=== PATIENT | male | born 1965 | race Asian ===

== ENCOUNTER 2018-06-19 16:22 | Emergency (ER) | payer OTHER ==
[~2018-06-19] VITALS: Ht 182.9 cm; Wt 102.0 kg
--- NOTE | 2018-06-19 16:58 | RAD ---
EXAM: CHEST 1 VIEW History: Chest pain, lower extremity swelling. COMPARISON: None available. TECHNIQUE: Single portable radiograph of the chest FINDINGS: The cardiac silhouette is unremarkable. The lungs are clear bilaterally. The costophrenic sulci are clear and well demarcated. IMPRESSION: No radiographic evidence of an acute cardiopulmonary process. Electronically signed by: Leonides Barney MD (06/19/2018 4:55 PM) [id number]
--- NOTE | 2018-06-19 17:35 | RAD ---
Ultrasound venous Doppler INDICATION:RT LEG SWELLING TECHNIQUE: Grayscale, color Doppler and spectral waveform ultrasound images of the bilateral lower extremities deep veins obtained. COMPARISON: None FINDINGS: There is a hypoechoic filling defects seen in the right proximal, mid and distal SFV without internal blood flow. Rest of the interrogated deep veins are compressible and demonstrate evidence of blood flow with normal respiratory variation and response to augmentation. IMPRESSION: Findings of acute DVT in the right SFV. Critical findings were identified on 06/19/2018 5:24 PM, read back and verified with Dr. Peguero on 06/19/2018 5:[address] Phill Brown DO. Electronically signed by: Phill Brown DO (06/19/2018 5:32 PM) [facility]
--- NOTE | 2018-06-19 17:59 | PHYS DOC ---
Past History Past Medical History: Diabetes, Hypertension Past Surgical History: Tonsillectomy Alcohol Use: Occasionally Drug Use: None Adult General Chief Complaint Chief Complaint: LOWER EXTREMITY SWELLING HPI HPI This is a pleasant 53-year-old gentleman presenting to the emergency department today with unilateral leg swelling and pain. The pain in his leg is a throbbing sensation has been present for 1-2 days. Associated with swelling. He did recently have a long plane ride. He also has dyspnea on exertion without chest pain. He denies fevers or chills. Review of systems is negative for chest pain abdominal pain nausea vomiting fevers or chills. All other review of systems is negative unless otherwise noted in history of present illness. ED course: 53-year-old gentleman presenting to the emergency department today with unilateral leg swelling and dyspnea. Concern for possible DVT and pulmonary embolism. Ultrasound of the leg ordered along with blood work and angiogram of the chest. Ultrasound demonstrates DVT in the right leg. Chemistry still pending along with angiogram of the chest. Patient signed out at 6 PM with plans on anticoagulation and possible admission depending other studies. Patient was signed out to Dr. Spaulding. Review of Systems Review of Systems SEE ABOVE. Current Medications Current Medications Current Medications Medications (Trade) Dose Ordered Sig/Joanna Start Time Stop Time Status Last Admin Dose Admin Info (Do NOT chart on this entry -- for MONITORING) 1 each PRN DAILY PRN 06/19/18 18:00 06/21/18 17:59 Iohexol (Omnipaque 300 Mg/ml) 75 ml 1X ONCE 06/19/18 18:00 06/19/18 18:01 Allergies Allergies Allergies Coded Allergies Type Severity Reaction Last Updated Verified No Known Drug Allergies 06/19/18 No Physical Exam Physical Exam SEE ABOVE Constitutional: Well developed, well nourished, no acute distress, non-toxic appearance. [] HENT: Normocephalic, atraumatic, bilateral external ears normal, oropharynx moist, no oral exudates, nose normal. [] Eyes: PERRLA, EOMI, conjunctiva normal, no discharge. [] Neck: Normal range of motion, no tenderness, supple, no stridor. [] Cardiovascular:Heart rate regular rhythm, no murmur [] Lungs & Thorax: Bilateral breath sounds clear to auscultation [] Abdomen: Bowel sounds normal, soft, no tenderness, no masses, no pulsatile masses. [] Skin: Warm, dry, no erythema, no rash. [] Back: No tenderness, no CVA tenderness. [] Extremities: Patient has mild pain in the right lower extremity with swelling. Tenderness along the venous system. Otherwise neurovascularly intact. 2 second cap refill. Neurologic: Alert and oriented X 3, normal motor function, normal sensory function, no focal deficits noted. [] Psychologic: Affect normal, judgement normal, mood normal. [] Current Patient Data Vital Signs Vital Signs Date Time Temp Pulse Resp B/P (MAP) Pulse Ox O2 Delivery O2 Flow Rate FiO2 06/19/18 16:37 98.4 100 16 96 Room Air EKG EKG [] Radiology/Procedures Radiology/Procedures [] Course & Med Decision Making Course & Med Decision Making Pertinent Labs and Imaging studies reviewed. (See chart for details) [] Dragon Disclaimer Dragon Disclaimer This electronic medical record was generated, in whole or in part, using a voice recognition dictation system. SANJEEV EBRRY MD Jun 19, 2018 17:59
[2018-06-19] MEDS ORDERED: CONTRAST GIVEN MC PRN (18:00)
[2018-06-19] MEDS ORDERED: IOHEXOL 300 MG/ML 75 ML VIAL. IV ONE (18:00)
[2018-06-19 18:08] LABS: ALBUMIN 3.7 g/dL (3.4-5.0); CALCIUM 9.2 mg/dL (8.5-10.1); CREATININE 1.1 mg/dL (0.7-1.3); DIRECT BILIRUBIN 0.1 mg/dL (0.0-0.2); POTASSIUM 3.6 mmol/L (3.5-5.1); TOTAL BILIRUBIN 0.4 mg/dL (0.2-1.0); TOTAL PROTEIN 7.6 g/dL (6.4-8.2)
[2018-06-19 18:11] LABS: BASO # 0.1 x10^3/uL (0.0-0.2); BASO % 1 % (0-3); EOS # 0.2 x10^3/uL (0.0-0.7); EOS % 2 % (0-3); HEMOGLOBIN 13.9 g/dL (13.0-17.5); LYMPH # 2.4 x10^3/uL (1.0-4.8); LYMPH % 21 % (24-48); MEAN CORPUSCULAR HEMOGLOBIN 28 pg (25-35); MEAN CORPUSCULAR HGB CONC 33 g/dL (31-37); MEAN CORPUSCULAR VOLUME 85 fL (79-100); MONO # 0.8 x10^3/uL (0.0-1.1); MONO % 7 % (0-9); NEUT # 8.2 x10^3uL (1.8-7.7); NEUT % 70 % (31-73); PLATELET COUNT 303 x10^3/uL (140-400); RED BLOOD COUNT 4.97 x10^6/uL (4.30-5.70); RED CELL DISTRIBUTION WIDTH 13.5 % (11.5-14.5); WHITE BLOOD COUNT 11.6 x10^3/uL (4.0-11.0)
--- NOTE | 2018-06-19 18:18 | EKG ---
[address] [address] Test Date: 2018-06-19 Test Time: 18:00:11 Pat Name: TERRA HORTON Department: Room: Gender: M Activity Manager: : [id number] Requested By: SANJEEV BERRY Order Number: [id number] Reading MD: Amol Portillo Measurements Intervals [place] Rate: 98 P: 54 AK: 146 QRS: 69 QRSD: 90 T: 21 QT: 338 QTc: 433 Interpretive Statements SINUS RHYTHM Electronically Signed On 06-21-2018 13:06:45 CDT by Amol Portillo
[2018-06-19] MEDS ORDERED: HEPARIN for IV BOLUS 10,000 UNIT/10 ML VIAL. IV PRN ×2 (18:30)
[2018-06-19] MEDS ORDERED: HEPARIN 25,000UTS/500ML PREMIX 500 ML IV PRN (18:30)
[2018-06-19] MEDS ORDERED: HEPARIN for IV BOLUS 10,000 UNIT/10 ML VIAL. IV ONE (18:30)
[2018-06-19] MEDS ORDERED: HEPARIN 25,000UTS/500ML PREMIX 500 ML IV ONE (18:32)
[2018-06-19] MEDS ORDERED: HEPARIN for IV BOLUS 10,000 UNIT/10 ML VIAL. ONE (18:32)
--- NOTE | 2018-06-19 18:32 | RAD ---
PQRS Compliance statement: One or more of the following individualized dose reduction techniques were utilized for this examination: 1. Automated exposure control. 2. Adjustment of the mA and/or kV according to patient size. 3. Use of iterative reconstruction technique. Indication:20 hr flight sunday, short of air, tachycardia, 75mls Omni 300 iv contrast TECHNIQUE: CT angiogram of the chest with IV contrast with multiplanar MIP reformats. COMPARISON:None FINDINGS: Diagnostic quality PE study. There are central and segmental bilateral PE with a saddle embolus. Heart is normal in size. There is evidence of right heart strain as suggested by leftward deviation of the interventricular septum. No pericardial or pleural effusion. No enlarged axillary, mediastinal or hilar adenopathy. No pneumothorax. No lung consolidation. No evidence of pulmonary infarct. Visualized sections through the liver, spleen, bladder, pancreas, adrenals and kidneys within normal limits. No suspicious bony lesion. IMPRESSION: 1. Bilateral central and segmental PE with small saddle embolus. Critical findings were identified on 06/19/2018 6:24 PM, read back and verified with Dr. Peguero on 06/19/2018 6:[address] Phill Brown DO. Electronically signed by: Phill Brown DO (06/19/2018 6:29 PM) [facility]
[2018-06-19 19:04] VITALS: BP 140/61
== END 2018-06-19 19:26 | disposition short-term general hospital (02) ==
LOC: ER 16:22
DX: I82.401 Acute embolism and thrombosis of unspecified deep veins of right lower extremity (principal); I26.92 Saddle embolus of pulmonary artery without acute cor pulmonale; E11.9 Type 2 diabetes mellitus without complications; I10 Essential (primary) hypertension
CPT/HCPCS: 36415; 71045; 71275; 80048; 80076; 83690; 84484; 85025; 85610; 85730; 93005; 93971; 96365; 96376; 99285; J1644; Q9967